=== PATIENT | female | born 1995 | race African-American/Black ===

== ENCOUNTER 2016-07-09 00:20 | Emergency (ER) | payer OTHER ==
--- NOTE | 2016-07-09 01:04 | ED Physician Chart ---
Chief Complaint/HPI - Patient Information Date Seen:: 07/09/16 Time Seen:: 00:58 Chief Complaint:: depressed w SI History of Present Illness:: pt feeling depressed x 1-2 weeks worse tonight. saw school counsillor at 4pm and has fu appt wednesday. at 9pm pt feels so down she attempted to hang herself from shower melania w a belt...then stopped fearing it would fail. she called a suicide hotline and they referred her to ED ..her 2 best friends transported her here and since have been talking w her and improved her mood. pt says she is not suicidal at this moment here in ED w friends around but doesnt say anything about what lies beyond... she has fam in [place] w both parents together and 4 other siblings. she has had rare depression in past, never was on meds for it. no major life event recently..just upset about her school work and extracurricular workload in general. she also works a job outside school. Allergies:: Allergies Allergy/AdvReac Type Severity Reaction Status Date / Time No Known Allergies Allergy Verified 07/09/16 00:37 Vitals:: Vital Signs - 8 hr 07/09/16 00:25 Temp 98.1 F HR 97 RR 17 BP 124/74 O2 Sat % 100 Historian:: Patient, Friend (x2) Review of Systems - Review of Systems General/Constitutional: No fever, No chills, No weight loss, No weakness, No diaphoresis, No edema, No loss of appetite Skin: No skin lesions, No rash, No bruising Head: No headache, No light-headedness Eyes: No loss of vision, No pain, No diplopia ENT: No earache, No nasal drainage, No sore throat, No tinnitus Neck: No neck pain, No swelling, No thyromegaly, No stiffness, No mass noted Cardio Vascular: No chest pain, No palpitations, No PND, No orthopnea, No edema Pulmonary: No SOB, No cough, No sputum, No wheezing GI: No nausea, No vomiting, No diarrhea, No pain, No melena, No hematochezia, No constipation, No hematemesis G/U: No dysuria, No frequency, No hematuria Musculoskeletal: No bone or joint pain, No back pain, No muscle pain Endocrine: No polyuria, No polydipsia Psychiatric: No prior psych history, Depression, No anxiety, Suicidal ideation Hematopoietic: No bruising, No lymphadenopathy Allergic/Immuno: No urticaria, No angioedema Neurological: No syncope, No focal symptoms, No weakness, No paresthesia, No headache, No seizure, No dizziness, No confusion, No vertigo Past Medical History - Past Medical History Past Medical History: No significant medical hx Social History: Non Smoker, No Alcohol, No Drug Use Medication: Reviewed Family Medical History - Family Member Mother History Unknown: Yes Physical Exam - Physical Examination General/Constitutional: Awake, Well-developed, well-nourished, Alert, No distress, GCS 15, Non-toxic appearing, Ambulatory Other Gen/Cons comments:: pt is currently smiling. is not Suicidal at this moment. seems calm and in nad. friends at bedside Head: Atraumatic Eyes: Lids, conjuctiva normal, PERRL, EOMI Skin: Nl inspection, No rash, No skin lesions, No ecchymosis, Well hydrated, No lymphadenopathy ENMT: External ears, nose nl, Nasal exam nl, Lips, teeth, gums nl Neck: Nontender, Full ROM w/o pain, No JVD, No nuchal rigidity, No bruit, No mass, No stridor Respiratory: Nl effort/Exclusion, Clear to Auscultation, No Wheeze/Rhonchi/Rales Cardio Vascular: RRR, No murmur, gallop, rubs, NL S1 S2 GI: No tenderness/rebounding/guarding, No organomegaly, No hernia, Normal BS's, Nondistended, No mass/bruits, No McBurney tenderness : No CVA tenderness Extremities: No tenderness or effusion, Full ROM, normal strength in all extremities, No edema, Normal digits & nails Neuro/Psych: Alert/oriented, DTR's symmetric, Normal sensory exam, Normal motor strength, Judgement/insight normal, Mood normal, Normal gait, No focal deficits Misc: normal gait, Normal back, No paraspinal tenderness Labs/Radiology/EKG Results - Lab Results Results: Laboratory Tests 07/09/16 07/09/16 07/09/16 01:10 01:10 01:10 WBC 10.3 RBC 4.85 Hgb 13.7 Hct 43.2 MCV 89.1 MCH 28.2 MCHC Differential 31.7 RDW 12.1 Plt Count 109 L MPV 8.2 Neutrophils % 53.2 Lymphocytes % 35.6 Monocytes % 6.3 Eosinophils % 1.8 Basophils % 3.1 H Sodium 135 L Potassium 3.6 Chloride 105 Carbon Dioxide 24.4 Anion Gap 9.2 BUN 11 Creatinine 0.7 Est GFR ( Amer) > 60.0 Est GFR (Non-Af Amer) > 60.0 BUN/Creatinine Ratio 15.7 Glucose 97 Calcium 10.0 TSH Urine Source CLEAN C Urine Color YELLOW Urine Clarity CLEAR Urine pH 5.5 Ur Specific [place] 1.025 Urine Protein NEGATIVE Urine Glucose (UA) NEGATIVE Urine Ketones TRACE Urine Blood NEGATIVE Urine Nitrate NEGATIVE Urine Bilirubin NEGATIVE Urine Urobilinogen 0.2 Ur Leukocyte Esterase NEGATIVE Urine RBC 0-2 Urine WBC 0-2 Ur Epithelial Cells FEW Urine Bacteria FEW Urine Test Salicylates < 25.0 L Urine Opiates Screen Acetaminophen < 10.0 L Ur Barbiturates Screen Ur Phencyclidine Scrn Amphetamines Screen U Methamphetamines Scrn U Benzodiazepines Scrn U Cocaine Metab Screen U Cannabinoids Screen Ethyl Alcohol < 10 07/09/16 07/09/16 07/09/16 01:10 01:10 01:10 WBC RBC Hgb Hct MCV MCH MCHC Differential RDW Plt Count MPV Neutrophils % Lymphocytes % Monocytes % Eosinophils % Basophils % Sodium Potassium Chloride Carbon Dioxide Anion Gap BUN Creatinine Est GFR ( Amer) Est GFR (Non-Af Amer) BUN/Creatinine Ratio Glucose Calcium TSH 1.03 Urine Source Urine Color Urine Clarity Urine pH Ur Specific [place] Urine Protein Urine Glucose (UA) Urine Ketones Urine Blood Urine Nitrate Urine Bilirubin Urine Urobilinogen Ur Leukocyte Esterase Urine RBC Urine WBC Ur Epithelial Cells Urine Bacteria Urine Test NEGATIVE Salicylates Urine Opiates Screen NEGATIVE Acetaminophen Ur Barbiturates Screen NEGATIVE Ur Phencyclidine Scrn NEGATIVE Amphetamines Screen NEGATIVE U Methamphetamines Scrn NEGATIVE U Benzodiazepines Scrn NEGATIVE U Cocaine Metab Screen NEGATIVE U Cannabinoids Screen NEGATIVE Ethyl Alcohol ED Septic Shock - . Is Septic Shock (SBP<90, OR Lactate>4 mmol\L) present?: No - <6hrs of presentation: Vital Signs: Vital Signs - 8 hr 07/09/16 00:25 Temp 98.1 F HR 97 RR 17 BP 124/74 O2 Sat % 100 Reassessment (Disposition) - Reassessment Reassessment:: 1;04am dw pt options...she is ok w wait till am to talk to psy dr. ford ok, pt doing fine. awaiting psych dr in am...4am ...plan is to sign over to am dr sauceda at change shift so pt can get her psy eval pt medically cleared for psych eval... Reassessment Condition:: Unchanged - Diagnosis Diagnosis:: depression/suicide ideation - Patient Disposition Condition at Disposition:: Unchanged
[2016-07-09 01:24] LABS: % BASOPHILS 3.1 % (0.0-2.0); % EOSINOPHILS 1.8 % (0.0-5.0); % LYMPHOCYTES 35.6 % (20.0-50.0); % MONOCYTES 6.3 % (2.0-10.0); % NEUTROPHILS 53.2 % (40.0-80.0); HEMATOCRIT 43.2 % (35.0-45.0); HEMOGLOBIN 13.7 gm/dL (11.7-15.5); MEAN CELL VOLUME 89.1 fl (81-100); MEAN CORPUSCULAR HEMOGLOBIN 28.2 pg (27.0-31.0); MEAN CORPUSCULAR HGB CONC 31.7 pg (28.0-36.0); MEAN PLATELET VOLUME 8.2 fl; NEUTROPHILE ABSOLUTE 5.5 Th/cmm (1.8-8.0); PLATELET COUNT 109 Th/cmm (150-400); RED BLOOD COUNT 4.85 Mil/cmm (3.80-5.10); RED CELL DISTRIBUTION WIDTH 12.1 % (11.5-20.0); WHITE BLOOD COUNT 10.3 Th/cmm (4.8-10.8)
[2016-07-09 01:40] LABS: URINE COLOR YELLOW; URINE GLUCOSE (UA) NEGATIVE (NEGATIVE)
[2016-07-09 01:41] LABS: URINE BACTERIA FEW /hpf (NONE SEEN); URINE BILIRUBIN NEGATIVE (NEGATIVE); URINE BLOOD NEGATIVE (NEGATIVE); URINE EPITHELIAL CELLS FEW /lpf (FEW); URINE KETONE TRACE mg/dL (NEGATIVE); URINE PH 5.5; URINE PROTEIN NEGATIVE (NEGATIVE); URINE RBC 0-2 /hpf (0-5); URINE UROBILINOGEN 0.2 E.U./dL (0.2 - 1.0); URINE WBC 0-2 /hpf (0-5)
[2016-07-09 01:45] LABS: ACETAMINOPHEN < 10.0 ug/mL (10.0-30.0); ANION GAP 9.2 (7.0-16.0); BUN - UREA NITROGEN 11 mg/dL (7-25); BUN/CREATININE RATIO 15.7; CARBON DIOXIDE 24.4 mEq/L (21.0-31.0); CHLORIDE 105 mEq/L (98-107); CREATININE - SERUM 0.7 mg/dL (0.6-1.2); GLUCOSE 97 mg/dL (70-105); POTASSIUM SERUM 3.6 mEq/L (3.5-5.1); SODIUM SERUM 135 mEq/L (136-145)
[2016-07-09 01:46] LABS: AMPHETAMINE URINE NEGATIVE (NEGATIVE); BARBITURATES URINE NEGATIVE (NEGATIVE)
--- NOTE | 2016-07-09 15:14 | Consultation ---
HISTORY OF PRESENT ILLNESS: The patient is a 20-year-old -[place] female. 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 Information obtained by directly interviewing the patient as well as reviewing the admission papers. JUSTIFICATION FOR HOSPITALIZATION: The patient has presented to the Emergency Room because she has been feeling overwhelmed with the school work and extracurricular activities she has to do. The patient is stating that she has ____ and has been very stressed out with it because she does not have adequate personnel to help her out. The patient is stating that she is speaking up the ____ and feels overwhelmed. The patient is stating that she felt suicidal and has called the hotline and they directed her to come over here. The patient is seeing a therapist twice a week and she states that she has already a session this morning. The patient is currently not on any medications. Sleep and appetite are noted to be fair. The patient is going to be graduating from Social Work this May. PAST PSYCHIATRIC HISTORY: None. MEDICAL HISTORY: The patient has a history of asthma and has been using the inhaler on and off. SUBSTANCE ABUSE HISTORY: None. PHYSICAL OR SEXUAL ABUSE HISTORY: None. LEGAL PROBLEMS: None at this time. STRENGTHS AND ASSETS: The patient is motivated. MENTAL EXAMINATION: The patient is a 20-year-old, looking her stated age, cooperative. Eye contact is fair. Mood noted to be anxious. Affect is appropriate. Not suicidal or homicidal. Motivated to seek treatment. No psychiatric symptoms are noted. The patient is not suicidal at this time. No homicidal ideation is noted. Insight and judgment noted to be improving. Impulse control seems to be fair. DIAGNOSTIC IMPRESSION: Depressive disorder, not otherwise specified. PLAN: To discharge the patient's to self to refer her to the counseling at [employer]. JOB# [id number]
[2016-07-10 09:26] LABS: HEP B CORE IGM Negative (Negative); HEP C ANTIBODY <0.1 s/co ratio (0.0-0.9)
== END 2016-07-09 11:30 | disposition home or self-care (01) ==
LOC: ER 00:20
DX: R45.851 Suicidal ideations (principal)
CPT/HCPCS: 36415-UA; 80048-TC; 80074-90; 80320-TC; 80329-TC; 81001-TC; 81025-TC; 84443-TC; 85025-TC; 86592-TC; Z7502